=== PATIENT | male | born 1955 | race Caucasian/White ===

== ENCOUNTER 2017-07-25 22:39 | Inpatient (IN) | payer OTHER, BC ==
[~2017-07-25] VITALS: Ht 170.2 cm; Wt 84.0 kg
[~2017-07-25 22:39] MED LIST: AMLODIPINE BESYL5 MG GT; AMLODIPINE BESYL5 MG PO; ARTIFICIAL TEA3.5 G1 BOTH EYES; ATORVASTATIN CA80 MG GT; AVELOX400 MG PO; BYSTOLIC20 MG PO; CARDIZEM60 MG GT; CARVEDILOL12.5 MG GT; CLONAZEPAM1 MG PO; COLACE10 MG/ML GT; COUMADIN,JANTOVE5 MG PO; COUMADIN1 MG GT; FENOFIBRATE160 M1 PO; GLUCOPHAGE500 MG PO; HYDROCHLOROTHIA25 MG PO; IPRATR-ALBUTEROL3 ML IH; KLONOPIN1 MG PO; LISINOPRIL10 MG PO; LISINOPRIL5 MG GT; LIVALO2 MG PO; LO-DOSE ASPIRIN81 M1 PO; LOPRESSOR100 M1 PO; METANX1 TABLET PO; METFORMIN HCL500 MG PO; METOPROLOL TAR100 MG PO; NEXIUM40 MG PO; OLANZAPINE5 MG GT; OMEGA 3 1,0001 EACH PO; PERCOCET 10/1 TABLET PO; PROVENTIL HFA6.7 GM IH; TARKA 4/2401 TABLET PO; TEARS NATURALE-15 ML BOTH EYES; TRILIPIX135 MG PO; Tylenol Extra Streng PO; Tylenol GT; WARFARIN SODIUM4 MG PO; ZESTRIL,PRINIVI20 MG PO; [UNRECOGNIZED DRUG - OTHER] PO
[2017-07-25 23:15] LABS: BASOPHIL COUNT 0.1 K/uL (0-0.1); EOSINOPHIL (%) 0.1 % (0-5); HEMATOCRIT 44.7 % (38.0-50.0); IMMATURE GRANULOCYTE (%) 0.7 % (0.0-0.7); IMMATURE GRANULOCYTE COUNT 0.1 K/uL; LYMPHOCYTE COUNT 1.8 K/uL (1.0-2.8); MCH 27.7 PG (29.0-34.0); MCHC 32.4 G/DL (30.0-36.0); MCV 85.3 FL (86-99); MONOCYTE (%) 6.3 % (3-12); MONOCYTE COUNT 0.9 K/uL (0-0.8); NEUTROPHIL (%) 80.2 % (45-76); PLATELET COUNT 321 K/uL (156-360); RBC DIS.WIDTH-CV 13.7 % (11.8-14.6); RBC DIS.WIDTH-SD 42.5 % (39-53); RED BLOOD COUNT 5.24 M/uL (4.00-5.50); WHITE BLOOD COUNT 14.9 K/uL (4.1-10.2)
[2017-07-25 23:24] LABS: CHLORIDE 108 mEq/L (99-109); POTASSIUM 4.5 mEq/L (3.7-5.4); SODIUM 143 mEq/L (136-147)
[2017-07-25 23:27] LABS: GLUCOSE 211 mg/dL (70-99)
[2017-07-25 23:28] LABS: ANION GAP 17 MEQ/L (2-14)
[2017-07-25 23:29] LABS: TOTAL BILIRUBIN 0.8 mg/dL (0.0-1.0)
[2017-07-25 23:30] LABS: ALKALINE PHOSPHATASE 110 IU/L (3-129); GFR ESTIMATE (CALCULATED) 47 mL/min/
[2017-07-25 23:31] LABS: UREA NITROGEN (BUN) 21 mg/dL (9-23)
[2017-07-25 23:40] LABS: TROP-I INTERPRETATION NEGATIVE; TROPONIN-I 0.15 ng/mL (0.0-0.30)
[2017-07-26] VITALS (11 sets, daily range): BP systolic 111–164; BP diastolic 68–100
[2017-07-26 02:49] LABS: BASE EXCESS -5.4 mEq/L (-3 to +3); CARBOXY HGB 3.2 % (0-5); METHEMOGLOBIN 0.9 % (0-1.5); pH 7.42 (7.35-7.45)
[2017-07-26 02:50] LABS: BICARBONATE 17.5 mEq/L (22-26); COMMENTS - BLOOD GASES A+C+; DEVICE HHFNC; FI02 80 %; O2 FLOW 50 L/MIN; PCO2 27 mm Hg (35-45); PO2 52 mm Hg (80-100); SITE LR; TOTAL RESP RATE 20 resp/min
[2017-07-26 02:58] LABS: INTER. NORMALIZED RATIO 3.8; PROTHROMBIN TIME 43.8 SEC (10.2-12.9)
[2017-07-26 05:14] LABS: BASE EXCESS -4.4 mEq/L (-3 to +3); BICARBONATE 19.2 mEq/L (22-26); CARBOXY HGB 2.1 % (0-5); COMMENTS - BLOOD GASES A+C+; DEVICE HHFNC; FI02 80 %; METHEMOGLOBIN 0.7 % (0-1.5); O2 FLOW 50 L/MIN; PCO2 31 mm Hg (35-45); PO2 55 mm Hg (80-100); SITE LR; TOTAL RESP RATE 26 resp/min
[2017-07-26 05:57] LABS: TROP-I INTERPRETATION NEGATIVE; TROPONIN-I 0.14 ng/mL (0.0-0.30)
[2017-07-26 07:33] LABS: METH RESISTANT S AUREUS PCR NEGATIVE (NEGATIVE)
[2017-07-26 07:34] LABS: PROBE CHECK PASS; SPECIMEN PROCESSING CONTROL PASS
[2017-07-26 08:39] LABS: HEMATOCRIT 38.4 % (38.0-50.0); MCH 28.4 PG (29.0-34.0); MCHC 33.9 G/DL (30.0-36.0); MEAN PLAT.VOLUME 9.9 uM^3 (9.0-12.4); PLATELET COUNT 241 K/uL (156-360); RBC DIS.WIDTH-CV 13.8 % (11.8-14.6); RBC DIS.WIDTH-SD 42.1 % (39-53); RED BLOOD COUNT 4.57 M/uL (4.00-5.50)
[2017-07-26 08:55] LABS: INTER. NORMALIZED RATIO 4.2; PROTHROMBIN TIME 48.8 SEC (10.2-12.9)
[2017-07-26 09:04] LABS: POINT-OF-CARE METER ID UU14208751
[2017-07-26 09:30] LABS: ALKALINE PHOSPHATASE 75 IU/L (3-129); ANION GAP 12 MEQ/L (2-14); CHLORIDE 108 MEQ/L (99-109); GLUCOSE 172 mg/dL (70-99); POTASSIUM 4.1 MEQ/L (3.7-5.4); SAMPLE HEMOLYSIS CHECK 0; SAMPLE ICTERIC CHECK 0; SAMPLE LIPEMIA CHECK 0; SODIUM 142 MEQ/L (136-147); TOTAL BILIRUBIN 0.4 MG/DL (0.0-1.0); UREA NITROGEN (BUN) 21 mg/dL (9-23)
[2017-07-26 09:49] LABS: GFR ESTIMATE (CALCULATED) > 59 mL/min/
[2017-07-26 11:19] LABS: TROP-I INTERPRETATION NEGATIVE
[2017-07-26 11:50] LABS: POINT-OF-CARE METER ID UU14208751; POINT-OF-CARE USER ID 612031313
[2017-07-26 13:59] LABS: INFLUENZA A VIRAL ANTIGEN NEGATIVE; INFLUENZA B VIRAL ANTIGEN NEGATIVE
[2017-07-26] MEDS ORDERED: LIVALO2 MG PO (14:35)
[2017-07-26] MEDS ORDERED: LOPRESSOR100 M1 PO (14:36)
[2017-07-26] MEDS ORDERED: JANTOVEN4 MG PO (14:37)
[2017-07-26] MEDS ORDERED: GLUCOPHAGE500 MG PO (14:38)
[2017-07-26] MEDS ORDERED: LISINOPRIL10 MG PO (14:39)
[2017-07-26 17:16] LABS: POINT-OF-CARE METER ID UU14208751; POINT-OF-CARE USER ID 612031313
[2017-07-26 18:21] LABS: ANION GAP 14 MEQ/L (2-14); CHLORIDE 108 MEQ/L (99-109); POTASSIUM 3.9 MEQ/L (3.7-5.4); SAMPLE HEMOLYSIS CHECK 0; SAMPLE ICTERIC CHECK 0; SAMPLE LIPEMIA CHECK 0; SODIUM 142 MEQ/L (136-147)
[2017-07-26 18:26] LABS: GFR ESTIMATE (CALCULATED) > 59 mL/min/; GLUCOSE 164 mg/dL (70-99); UREA NITROGEN (BUN) 27 mg/dL (9-23)
[2017-07-26 22:16] LABS: POINT-OF-CARE METER ID UU14162636; POINT-OF-CARE USER ID LABHNS84
[2017-07-27] VITALS (10 sets, daily range): BP systolic 90–138; BP diastolic 49–93
[2017-07-27 05:43] LABS: EOSINOPHIL (%) 0 % (0-5); IMMATURE GRANULOCYTE (%) 0.7 % (0.0-0.7); IMMATURE GRANULOCYTE COUNT 0.1 K/uL; LYMPHOCYTE COUNT 0.7 K/uL (1.0-2.8); MCH 27.6 PG (29.0-34.0); MCHC 32.8 G/DL (30.0-36.0); MCV 84.1 FL (86-99); MEAN PLAT.VOLUME 10.6 uM^3 (9.0-12.4); MONOCYTE (%) 2.9 % (3-12); MONOCYTE COUNT 0.4 K/uL (0-0.8); NEUTROPHIL (%) 91.8 % (45-76); PLATELET COUNT 262 K/uL (156-360); RBC DIS.WIDTH-CV 13.8 % (11.8-14.6); RBC DIS.WIDTH-SD 42.5 % (39-53); RED BLOOD COUNT 4.64 M/uL (4.00-5.50); WHITE BLOOD COUNT 15.2 K/uL (4.1-10.2)
[2017-07-27 06:08] LABS: ANION GAP 11 MEQ/L (2-14); CHLORIDE 109 MEQ/L (99-109); GFR ESTIMATE (CALCULATED) 44 mL/min/; GLUCOSE 175 mg/dL (70-99); POTASSIUM 3.7 MEQ/L (3.7-5.4); SAMPLE HEMOLYSIS CHECK 0; SAMPLE ICTERIC CHECK 0; SAMPLE LIPEMIA CHECK 0; SODIUM 141 MEQ/L (136-147); UREA NITROGEN (BUN) 36 mg/dL (9-23)
[2017-07-27 07:18] LABS: INTERNAL CONTROL VALID? YES
[2017-07-27 12:22] LABS: POINT-OF-CARE METER ID UU14174217
[2017-07-27 12:34] LABS: INTER. NORMALIZED RATIO 3.2; PROTHROMBIN TIME 37.2 SEC (10.2-12.9)
[2017-07-27 17:19] LABS: POINT-OF-CARE METER ID UU14162636
[2017-07-27 21:11] LABS: POINT-OF-CARE METER ID UU14162636
[2017-07-28] VITALS (8 sets, daily range): BP systolic 107–152; BP diastolic 63–92
[2017-07-28 05:16] LABS: HEMATOCRIT 40.2 % (38.0-50.0); MCH 28.3 PG (29.0-34.0); MCHC 33.3 G/DL (30.0-36.0); MCV 84.8 FL (86-99); MEAN PLAT.VOLUME 10.7 uM^3 (9.0-12.4); PLATELET COUNT 291 K/uL (156-360); RBC DIS.WIDTH-CV 14.1 % (11.8-14.6); RBC DIS.WIDTH-SD 43.2 % (39-53); RED BLOOD COUNT 4.74 M/uL (4.00-5.50); WHITE BLOOD COUNT 14.5 K/uL (4.1-10.2)
[2017-07-28 05:22] LABS: INTER. NORMALIZED RATIO 2.4; PROTHROMBIN TIME 27.6 SEC (10.2-12.9)
[2017-07-28 05:43] LABS: ANION GAP 12 MEQ/L (2-14); CHLORIDE 109 MEQ/L (99-109); GFR ESTIMATE (CALCULATED) 47 mL/min/; GLUCOSE 176 mg/dL (70-99); POTASSIUM 3.9 MEQ/L (3.7-5.4); SAMPLE HEMOLYSIS CHECK 0; SAMPLE ICTERIC CHECK 0; SAMPLE LIPEMIA CHECK 0; SODIUM 143 MEQ/L (136-147); UREA NITROGEN (BUN) 51 mg/dL (9-23)
[2017-07-28 07:04] LABS: POINT-OF-CARE METER ID UU13113748
[2017-07-28 11:59] LABS: POINT-OF-CARE METER ID UU13113748
[2017-07-28 16:58] LABS: POINT-OF-CARE METER ID UU13113748
[2017-07-28 22:00] LABS: POINT-OF-CARE METER ID UU13113748
[2017-07-29] VITALS (8 sets, daily range): BP systolic 115–152; BP diastolic 60–90
[2017-07-29 04:48] LABS: INTER. NORMALIZED RATIO 2.8
[2017-07-29 04:57] LABS: CHLORIDE 109 mEq/L (99-109); POTASSIUM 3.8 mEq/L (3.7-5.4); SODIUM 143 mEq/L (136-147)
[2017-07-29 04:58] LABS: GLUCOSE 193 mg/dL (70-99)
[2017-07-29 05:00] LABS: ANION GAP 14 MEQ/L (2-14)
[2017-07-29 05:02] LABS: GFR ESTIMATE (CALCULATED) 38 mL/min/
[2017-07-29 05:03] LABS: UREA NITROGEN (BUN) 59 mg/dL (9-23)
[2017-07-29 07:44] LABS: POINT-OF-CARE METER ID UU13113748
[2017-07-29 12:21] LABS: POINT-OF-CARE METER ID UU14208751
[2017-07-29 16:17] LABS: POINT-OF-CARE METER ID UU14174216
[2017-07-29 20:55] LABS: POINT-OF-CARE METER ID UU14174216
[2017-07-30 00:40] VITALS: BP 123/67
[2017-07-30 06:18] LABS: INTER. NORMALIZED RATIO 3.2; PROTHROMBIN TIME 36.4 SEC (10.2-12.9)
[2017-07-30 08:00] VITALS: BP 166/106
[2017-07-30 13:43] VITALS: BP 133/63
[2017-07-30 16:48] LABS: POINT-OF-CARE METER ID UU13113698
[2017-07-30 17:27] VITALS: BP 122/69
[2017-07-30 20:00] VITALS: BP 118/68; BP 138/91
[2017-07-30 21:05] LABS: POINT-OF-CARE USER ID ENVMNS
[2017-07-30 23:58] VITALS: BP 127/64
[2017-07-31 04:00] VITALS: BP 124/59
[2017-07-31 05:52] LABS: HEMATOCRIT 42.1 % (38.0-50.0); MCH 27.3 PG (29.0-34.0); MCHC 32.5 G/DL (30.0-36.0); MEAN PLAT.VOLUME 9.9 uM^3 (9.0-12.4); PLATELET COUNT 292 K/uL (156-360); RBC DIS.WIDTH-CV 14.1 % (11.8-14.6); RED BLOOD COUNT 5.01 M/uL (4.00-5.50); WHITE BLOOD COUNT 13.9 K/uL (4.1-10.2)
[2017-07-31 06:24] LABS: ANION GAP 10 MEQ/L (2-14); CHLORIDE 110 MEQ/L (99-109); GFR ESTIMATE (CALCULATED) 50 mL/min/; GLUCOSE 163 mg/dL (70-99); SAMPLE HEMOLYSIS CHECK 0; SAMPLE ICTERIC CHECK 0; SAMPLE LIPEMIA CHECK 0; SODIUM 143 MEQ/L (136-147); UREA NITROGEN (BUN) 52 mg/dL (9-23)
[2017-07-31 06:26] LABS: POTASSIUM 4.7 MEQ/L (3.7-5.4)
[2017-07-31 06:27] LABS: INTER. NORMALIZED RATIO 2.8; PROTHROMBIN TIME 32.3 SEC (10.2-12.9)
[2017-07-31 08:00] VITALS: BP 139/67
[2017-07-31 11:07] LABS: POINT-OF-CARE METER ID UU13113698
[2017-07-31 12:00] VITALS: BP 136/63
[2017-07-31 16:00] VITALS: BP 132/68
[2017-07-31 16:10] LABS: POINT-OF-CARE METER ID UU13113698
[2017-07-31 20:00] VITALS: BP 156/77
[2017-07-31 23:55] VITALS: BP 141/75
[2017-08-01 03:53] VITALS: BP 128/72
[2017-08-01 04:50] LABS: INTER. NORMALIZED RATIO 2.6; PROTHROMBIN TIME 29.4 SEC (10.2-12.9)
[2017-08-01 08:00] VITALS: BP 145/78
[2017-08-01 11:21] LABS: POINT-OF-CARE METER ID UU13113698
[2017-08-01 12:00] VITALS: BP 150/86
[2017-08-01 15:46] VITALS: BP 134/80
[2017-08-01 16:44] LABS: POINT-OF-CARE METER ID UU13113698
[2017-08-01 19:54] VITALS: BP 169/88
[2017-08-01 20:44] LABS: POINT-OF-CARE METER ID UU13113698
[2017-08-02 04:05] VITALS: BP 130/61
[2017-08-02 06:01] LABS: INTER. NORMALIZED RATIO 2.7
[2017-08-02 07:50] LABS: POINT-OF-CARE METER ID UU13113781
[2017-08-02 08:11] VITALS: BP 160/90
[2017-08-02] MEDS ORDERED: DILTIAZEM 24HR180 MG PO (08:57)
[2017-08-02] MEDS ORDERED: LOPRESSOR25 MG PO (08:57)
[2017-08-02] MEDS ORDERED: PREDNISONE20 MG PO (08:57)
[2017-08-02] MEDS ORDERED: ADVAIR HFA120 INHALA IH (08:57)
[2017-08-02] MEDS ORDERED: NICOTINE PATCH1 EAC2 TD (08:57)
[2017-08-02] MEDS ORDERED: AUGMENTIN875 MG PO (08:57)
== END 2017-08-02 13:10 | disposition home or self-care (01) | DRG 871 ==
LOC: EME 22:39 → EDOF 07-26 02:23 → 4EAST 07-26 02:23 → ENRESERV 07-26 02:24 → 4WEST 07-26 05:54 → ENRESERV 07-29 14:35 → 4EAST 07-29 15:33
PROVIDERS: Emergency Medicine; Hospitalist; Internal Medicine; Internal Medicine Pulmonary Disease
DX: A41.9 Sepsis, unspecified organism (principal); R65.20 Severe sepsis without septic shock; J96.01 Acute respiratory failure with hypoxia; J44.0 Chronic obstructive pulmonary disease with (acute) lower respiratory infection; J18.9 Pneumonia, unspecified organism; J44.1 Chronic obstructive pulmonary disease with (acute) exacerbation; N17.9 Acute kidney failure, unspecified; I16.0 Hypertensive urgency; I13.0 Hypertensive heart and chronic kidney disease with heart failure and stage 1 through stage 4 chronic kidney disease, or unspecified chronic kidney disease; E11.22 Type 2 diabetes mellitus with diabetic chronic kidney disease; I50.32 Chronic diastolic (congestive) heart failure; N18.3 Chronic kidney disease, stage 3 (moderate); I48.0 Paroxysmal atrial fibrillation; E87.4 Mixed disorder of acid-base balance; E78.00 Pure hypercholesterolemia, unspecified; R74.8 Abnormal levels of other serum enzymes; I69.351 Hemiplegia and hemiparesis following cerebral infarction affecting right dominant side; K21.9 Gastro-esophageal reflux disease without esophagitis; Z79.01 Long term (current) use of anticoagulants; F17.210 Nicotine dependence, cigarettes, uncomplicated; Z82.49 Family history of ischemic heart disease and other diseases of the circulatory system; Z83.3 Family history of diabetes mellitus; Z86.711 Personal history of pulmonary embolism; Z86.718 Personal history of other venous thrombosis and embolism
CPT/HCPCS: 36600; 71010; 71250; 80048; 80048 91; 80053; 82803; 82948; 83605; 83735; 83880; 84484; 85025; 85027; 85610; 85730; 87040; 87070; 87205; 87449; 87502; 87641; 93005; 94640; 94640 76; 94644; 94799; 97530 GO; 99202; 99281; 99285; J0360; J0456; J0696; J1160; J1815; J1940; J2920; J2930; J3475; J7030; J7040; J7050; J7512

== ENCOUNTER 2017-10-07 07:23 | Inpatient (IN) | payer OTHER, BC ==
[~2017-10-07] VITALS: Ht 167.6 cm; Wt 82.5 kg
[~2017-10-07 07:23] MED LIST changes: +ADVAIR HFA120 INHALA IH; +AUGMENTIN875 MG PO; +DILTIAZEM 24HR180 MG PO; +JANTOVEN4 MG PO; +LOPRESSOR25 MG PO; +NICOTINE PATCH1 EAC2 TD; +PREDNISONE20 MG PO
[2017-10-07 08:13] LABS: BASOPHIL COUNT 0.1 K/uL (0-0.1); EOSINOPHIL (%) 4.4 % (0-5); EOSINOPHIL COUNT 0.5 K/uL (0-0.3); HEMATOCRIT 41.9 % (38.0-50.0); IMMATURE GRANULOCYTE (%) 0.4 % (0.0-0.7); IMMATURE GRANULOCYTE COUNT 0.1 K/uL; INSTRUMENT ABS NEUTROPHIL CT 8.5 K/uL; LYMPHOCYTE COUNT 2.1 K/uL (1.0-2.8); MCH 27.2 PG (29.0-34.0); MCHC 31.5 G/DL (30.0-36.0); MCV 86.2 FL (86-99); MEAN PLAT.VOLUME 9.8 uM^3 (9.0-12.4); MONOCYTE (%) 5.3 % (3-12); MONOCYTE COUNT 0.6 K/uL (0-0.8); NEUTROPHIL (%) 71.4 % (45-76); NEUTROPHIL COUNT 8.5 K/uL (1.8-6.4); PLATELET COUNT 315 K/uL (156-360); RBC DIS.WIDTH-CV 14.9 % (11.8-14.6); RBC DIS.WIDTH-SD 47.1 % (39-53); RED BLOOD COUNT 4.86 M/uL (4.00-5.50); WHITE BLOOD COUNT 11.9 K/uL (4.1-10.2)
[2017-10-07 08:25] LABS: PROTHROMBIN TIME 54.1 SEC (10.2-12.9)
[2017-10-07 08:27] LABS: CHLORIDE 111 mEq/L (99-109); POTASSIUM 4.4 mEq/L (3.7-5.4); SODIUM 144 mEq/L (136-147)
[2017-10-07 08:29] LABS: GLUCOSE 121 mg/dL (70-99)
[2017-10-07 08:29] LABS: INTER. NORMALIZED RATIO 4.8
[2017-10-07 08:30] LABS: ANION GAP 11 MEQ/L (2-14)
[2017-10-07 08:31] LABS: TOTAL BILIRUBIN 0.7 mg/dL (0.0-1.0)
[2017-10-07 08:33] LABS: ALKALINE PHOSPHATASE 115 IU/L (3-129); GFR ESTIMATE (CALCULATED) 55 mL/min/
[2017-10-07 08:34] LABS: UREA NITROGEN (BUN) 18 mg/dL (9-23)
[2017-10-07 08:41] LABS: TROP-I INTERPRETATION NEGATIVE; TROPONIN-I 0.06 ng/mL (0.0-0.30)
[2017-10-07] MEDS ORDERED: METOPROLOL TAR100 MG PO (10:10)
[2017-10-07] MEDS ORDERED: ADVAIR HFA120 INHALA IH (10:11)
[2017-10-07 11:29] LABS: ADD MIUA? YES; BILIRUBIN NEGATIVE; BLOOD SMALL; COLOR STRAW ((YELLOW)); GLUCOSE (STRIP) NEGATIVE; KETONES NEGATIVE; LEUKOCYTES NEGATIVE; NITRITE NEGATIVE; PROTEIN (STRIP) NEGATIVE; SPECIFIC GRAVITY 1.005 (1.000-1.030); UROBILINOGEN 0.2 MG/DL (0.2-1.0)
[2017-10-07 11:31] LABS: BACTERIA RARE /HPF; EPITHELIAL CELLS NONE SEEN /HPF; MUCUS TRACE /LPF; RED BLOOD CELLS 0-5 /HPF (0-5); UCUL ADDED? NO; WHITE BLOOD CELLS 0-5 /HPF (0-5)
[2017-10-07 14:00] VITALS: BP 144/83
[2017-10-07 14:58] LABS: TROP-I INTERPRETATION NEGATIVE; TROPONIN-I 0.05 ng/mL (0.0-0.30)
[2017-10-07 16:30] LABS: POINT-OF-CARE METER ID UU14314088
[2017-10-07 20:18] VITALS: BP 95/55
[2017-10-07 20:39] LABS: TROP-I INTERPRETATION NEGATIVE; TROPONIN-I 0.07 ng/mL (0.0-0.30)
[2017-10-07 20:57] LABS: POINT-OF-CARE METER ID UU14174216
[2017-10-07 23:25] VITALS: BP 99/56
[2017-10-08 04:57] VITALS: BP 97/55
[2017-10-08 05:38] LABS: INTER. NORMALIZED RATIO 3.9; PROTHROMBIN TIME 44.6 SEC (10.2-12.9)
[2017-10-08 05:39] LABS: HEMATOCRIT 35.6 % (38.0-50.0); MCH 26.8 PG (29.0-34.0); MCV 83.8 FL (86-99); MEAN PLAT.VOLUME 10.1 uM^3 (9.0-12.4); PLATELET COUNT 260 K/uL (156-360); RBC DIS.WIDTH-CV 14.8 % (11.8-14.6); RBC DIS.WIDTH-SD 45.1 % (39-53); RED BLOOD COUNT 4.25 M/uL (4.00-5.50); WHITE BLOOD COUNT 9.1 K/uL (4.1-10.2)
[2017-10-08 05:58] LABS: ALKALINE PHOSPHATASE 86 IU/L (3-129); ANION GAP 9 MEQ/L (2-14); CHLORIDE 110 MEQ/L (99-109); GFR ESTIMATE (CALCULATED) > 59 mL/min/; GLUCOSE 91 mg/dL (70-99); SAMPLE HEMOLYSIS CHECK 0; SAMPLE ICTERIC CHECK 0; SAMPLE LIPEMIA CHECK 0; SODIUM 144 MEQ/L (136-147); TOTAL BILIRUBIN 0.8 MG/DL (0.0-1.0); UREA NITROGEN (BUN) 21 mg/dL (9-23)
[2017-10-08 06:00] LABS: POTASSIUM 3.4 MEQ/L (3.7-5.4)
[2017-10-08 07:19] VITALS: BP 94/51
[2017-10-08 07:59] LABS: POINT-OF-CARE METER ID UU14174216
[2017-10-08 11:25] LABS: POINT-OF-CARE METER ID UU14174216
[2017-10-08 16:31] LABS: POINT-OF-CARE METER ID UU14174216
[2017-10-08 19:47] VITALS: BP 111/60
[2017-10-08 21:18] LABS: POINT-OF-CARE METER ID UU14174216
[2017-10-08 23:19] VITALS: BP 98/57
[2017-10-09 03:57] VITALS: BP 106/54
[2017-10-09 05:59] LABS: BASOPHIL COUNT 0.1 K/uL (0-0.1); EOSINOPHIL (%) 4.2 % (0-5); EOSINOPHIL COUNT 0.4 K/uL (0-0.3); HEMATOCRIT 34.4 % (38.0-50.0); IMMATURE GRANULOCYTE (%) 0.2 % (0.0-0.7); INSTRUMENT ABS NEUTROPHIL CT 6.6 K/uL; LYMPHOCYTE COUNT 1.7 K/uL (1.0-2.8); MCH 26.8 PG (29.0-34.0); MCV 83.9 FL (86-99); MEAN PLAT.VOLUME 10.1 uM^3 (9.0-12.4); MONOCYTE (%) 8.1 % (3-12); MONOCYTE COUNT 0.8 K/uL (0-0.8); NEUTROPHIL (%) 68.7 % (45-76); NEUTROPHIL COUNT 6.6 K/uL (1.8-6.4); PLATELET COUNT 247 K/uL (156-360); RBC DIS.WIDTH-CV 14.4 % (11.8-14.6); RBC DIS.WIDTH-SD 43.9 % (39-53); WHITE BLOOD COUNT 9.6 K/uL (4.1-10.2)
[2017-10-09 06:14] LABS: INTER. NORMALIZED RATIO 2.8
[2017-10-09 06:27] LABS: PROTHROMBIN TIME 32.3 SEC (10.2-12.9)
[2017-10-09 06:31] LABS: ALKALINE PHOSPHATASE 75 IU/L (3-129); ANION GAP 9 MEQ/L (2-14); CHLORIDE 108 MEQ/L (99-109); GFR ESTIMATE (CALCULATED) 44 mL/min/; GLUCOSE 108 mg/dL (70-99); POTASSIUM 3.2 MEQ/L (3.7-5.4); SAMPLE HEMOLYSIS CHECK 0; SAMPLE ICTERIC CHECK 0; SAMPLE LIPEMIA CHECK 0; SODIUM 142 MEQ/L (136-147); TOTAL BILIRUBIN 0.6 MG/DL (0.0-1.0); UREA NITROGEN (BUN) 26 mg/dL (9-23)
[2017-10-09 07:51] VITALS: BP 103/58
[2017-10-09 08:33] LABS: POINT-OF-CARE METER ID UU14314088
[2017-10-09 11:12] LABS: POINT-OF-CARE METER ID UU14174216
[2017-10-09 11:50] VITALS: BP 98/60
[2017-10-09 16:26] LABS: POINT-OF-CARE METER ID UU14174216
[2017-10-09 19:11] VITALS: BP 127/66
[2017-10-09 21:32] LABS: POINT-OF-CARE METER ID UU14174216
[2017-10-09 23:32] VITALS: BP 111/54
[2017-10-10 03:16] VITALS: BP 91/50
[2017-10-10 05:59] LABS: EOSINOPHIL (%) 0 % (0-5); HEMATOCRIT 35.7 % (38.0-50.0); IMMATURE GRANULOCYTE (%) 0.6 % (0.0-0.7); IMMATURE GRANULOCYTE COUNT 0.1 K/uL; LYMPHOCYTE COUNT 0.6 K/uL (1.0-2.8); MCHC 31.7 G/DL (30.0-36.0); MCV 85.2 FL (86-99); MONOCYTE (%) 1.4 % (3-12); MONOCYTE COUNT 0.1 K/uL (0-0.8); NEUTROPHIL (%) 91.9 % (45-76); PLATELET COUNT 278 K/uL (156-360); RBC DIS.WIDTH-CV 14.6 % (11.8-14.6); RBC DIS.WIDTH-SD 44.7 % (39-53); RED BLOOD COUNT 4.19 M/uL (4.00-5.50); WHITE BLOOD COUNT 9.8 K/uL (4.1-10.2)
[2017-10-10 06:26] LABS: INTER. NORMALIZED RATIO 1.7
[2017-10-10 06:46] LABS: ALKALINE PHOSPHATASE 77 IU/L (3-129); ANION GAP 11 MEQ/L (2-14); CHLORIDE 106 MEQ/L (99-109); GFR ESTIMATE (CALCULATED) 38 mL/min/; SAMPLE HEMOLYSIS CHECK 0; SAMPLE ICTERIC CHECK 0; SAMPLE LIPEMIA CHECK 0; SODIUM 141 MEQ/L (136-147); UREA NITROGEN (BUN) 39 mg/dL (9-23)
[2017-10-10 06:49] VITALS: BP 90/52
[2017-10-10 06:49] LABS: GLUCOSE 211 mg/dL (70-99); POTASSIUM 4.4 MEQ/L (3.7-5.4); TOTAL BILIRUBIN 0.4 MG/DL (0.0-1.0)
[2017-10-10 07:39] LABS: POINT-OF-CARE METER ID UU13113781
[2017-10-10 10:50] VITALS: BP 118/61
[2017-10-10 11:42] LABS: POINT-OF-CARE METER ID UU13113781
[2017-10-10 14:43] VITALS: BP 104/61
[2017-10-10 15:24] LABS: BASE EXCESS -1.1 mEq/L (-3 to +3); BICARBONATE 22.2 mEq/L (22-26); CARBOXY HGB 2.2 % (0-5); COMMENTS - BLOOD GASES A+C+; DEVICE HIGH FLOW NC; METHEMOGLOBIN 1.8 % (0-1.5); O2 FLOW 7 L/MIN; PCO2 32 mm Hg (35-45); PO2 54 mm Hg (80-100); SITE RR; pH 7.45 (7.35-7.45)
[2017-10-10 16:21] LABS: POINT-OF-CARE METER ID UU13113781
[2017-10-10 16:38] VITALS: BP 105/54
[2017-10-10 18:55] VITALS: BP 103/48
[2017-10-10 21:10] LABS: POINT-OF-CARE METER ID UU14174216
[2017-10-11] VITALS (7 sets, daily range): BP systolic 98–118; BP diastolic 51–70
[2017-10-11 05:48] LABS: EOSINOPHIL (%) 0 % (0-5); HEMATOCRIT 34.5 % (38.0-50.0); IMMATURE GRANULOCYTE (%) 0.7 % (0.0-0.7); IMMATURE GRANULOCYTE COUNT 0.1 K/uL; INSTRUMENT ABS NEUTROPHIL CT 16.4 K/uL; LYMPHOCYTE COUNT 0.6 K/uL (1.0-2.8); MCH 27.4 PG (29.0-34.0); MCHC 31.9 G/DL (30.0-36.0); MCV 85.8 FL (86-99); MONOCYTE (%) 2.3 % (3-12); MONOCYTE COUNT 0.4 K/uL (0-0.8); NEUTROPHIL (%) 93.5 % (45-76); NEUTROPHIL COUNT 16.4 K/uL (1.8-6.4); PLATELET COUNT 296 K/uL (156-360); RBC DIS.WIDTH-CV 15.2 % (11.8-14.6); RBC DIS.WIDTH-SD 47.5 % (39-53); RED BLOOD COUNT 4.02 M/uL (4.00-5.50); WHITE BLOOD COUNT 17.5 K/uL (4.1-10.2)
[2017-10-11 05:59] LABS: INTER. NORMALIZED RATIO 1.8; PROTHROMBIN TIME 20.1 SEC (10.2-12.9)
[2017-10-11 06:25] LABS: ALKALINE PHOSPHATASE 67 IU/L (3-129); ANION GAP 9 MEQ/L (2-14); CHLORIDE 106 MEQ/L (99-109); GFR ESTIMATE (CALCULATED) 36 mL/min/; GLUCOSE 201 mg/dL (70-99); POTASSIUM 4.8 MEQ/L (3.7-5.4); SAMPLE HEMOLYSIS CHECK 0; SAMPLE ICTERIC CHECK 0; SAMPLE LIPEMIA CHECK 0; SODIUM 137 MEQ/L (136-147); TOTAL BILIRUBIN 0.2 MG/DL (0.0-1.0); UREA NITROGEN (BUN) 59 mg/dL (9-23)
[2017-10-11 07:39] LABS: POINT-OF-CARE METER ID UU13113781; POINT-OF-CARE USER ID NUTSLF44
[2017-10-11 12:11] LABS: POINT-OF-CARE METER ID UU13113781; POINT-OF-CARE USER ID NUTSLF44
[2017-10-11 17:04] LABS: POINT-OF-CARE METER ID UU13113781; POINT-OF-CARE USER ID NUTSLF44
[2017-10-11 21:02] LABS: POINT-OF-CARE METER ID UU13113781
[2017-10-12 04:29] VITALS: BP 117/68
[2017-10-12 05:24] LABS: EOSINOPHIL (%) 0 % (0-5); HEMATOCRIT 34.8 % (38.0-50.0); IMMATURE GRANULOCYTE (%) 0.5 % (0.0-0.7); IMMATURE GRANULOCYTE COUNT 0.1 K/uL; INSTRUMENT ABS NEUTROPHIL CT 13.4 K/uL; LYMPHOCYTE COUNT 0.6 K/uL (1.0-2.8); MCHC 31.9 G/DL (30.0-36.0); MCV 84.7 FL (86-99); MEAN PLAT.VOLUME 10.4 uM^3 (9.0-12.4); MONOCYTE (%) 2.5 % (3-12); MONOCYTE COUNT 0.4 K/uL (0-0.8); NEUTROPHIL (%) 92.5 % (45-76); NEUTROPHIL COUNT 13.4 K/uL (1.8-6.4); PLATELET COUNT 289 K/uL (156-360); RBC DIS.WIDTH-CV 15.2 % (11.8-14.6); RBC DIS.WIDTH-SD 46.9 % (39-53); RED BLOOD COUNT 4.11 M/uL (4.00-5.50); WHITE BLOOD COUNT 14.5 K/uL (4.1-10.2)
[2017-10-12 05:27] LABS: INTER. NORMALIZED RATIO 1.7; PROTHROMBIN TIME 19.4 SEC (10.2-12.9)
[2017-10-12 05:48] LABS: ANION GAP 9 MEQ/L (2-14); CHLORIDE 104 MEQ/L (99-109); GFR ESTIMATE (CALCULATED) 38 mL/min/; GLUCOSE 190 mg/dL (70-99); POTASSIUM 4.3 MEQ/L (3.7-5.4); SAMPLE HEMOLYSIS CHECK 0; SAMPLE ICTERIC CHECK 0; SAMPLE LIPEMIA CHECK 0; SODIUM 135 MEQ/L (136-147); UREA NITROGEN (BUN) 64 mg/dL (9-23)
[2017-10-12 07:25] VITALS: BP 128/71
[2017-10-12 07:27] VITALS: BP 100/57
[2017-10-12 07:50] LABS: POINT-OF-CARE METER ID UU13113698; POINT-OF-CARE USER ID ENVKC36
[2017-10-12 11:59] LABS: POINT-OF-CARE METER ID UU14174216; POINT-OF-CARE USER ID ENVKC36
[2017-10-12 12:00] VITALS: BP 123/72
[2017-10-12 17:06] LABS: POINT-OF-CARE METER ID UU14174216; POINT-OF-CARE USER ID ENVKC36
[2017-10-12 17:20] VITALS: BP 125/62
[2017-10-12 19:15] VITALS: BP 130/70
[2017-10-12 21:15] LABS: POINT-OF-CARE METER ID UU13113698
[2017-10-13 00:01] VITALS: BP 125/58
[2017-10-13 04:01] VITALS: BP 91/55
[2017-10-13 05:33] LABS: EOSINOPHIL (%) 0 % (0-5); HEMATOCRIT 35.3 % (38.0-50.0); IMMATURE GRANULOCYTE (%) 0.8 % (0.0-0.7); IMMATURE GRANULOCYTE COUNT 0.1 K/uL; INSTRUMENT ABS NEUTROPHIL CT 9.4 K/uL; LYMPHOCYTE COUNT 0.6 K/uL (1.0-2.8); MCH 26.9 PG (29.0-34.0); MCHC 31.7 G/DL (30.0-36.0); MCV 84.7 FL (86-99); MONOCYTE (%) 4.6 % (3-12); MONOCYTE COUNT 0.5 K/uL (0-0.8); NEUTROPHIL (%) 89.1 % (45-76); NEUTROPHIL COUNT 9.4 K/uL (1.8-6.4); PLATELET COUNT 286 K/uL (156-360); RBC DIS.WIDTH-CV 15.3 % (11.8-14.6); RBC DIS.WIDTH-SD 47.7 % (39-53); RED BLOOD COUNT 4.17 M/uL (4.00-5.50); WHITE BLOOD COUNT 10.6 K/uL (4.1-10.2)
[2017-10-13 05:39] LABS: INTER. NORMALIZED RATIO 1.7
[2017-10-13 06:02] LABS: ALKALINE PHOSPHATASE 62 IU/L (3-129); ANION GAP 11 MEQ/L (2-14); CHLORIDE 106 MEQ/L (99-109); GFR ESTIMATE (CALCULATED) 44 mL/min/; GLUCOSE 177 mg/dL (70-99); SAMPLE HEMOLYSIS CHECK 0; SAMPLE ICTERIC CHECK 0; SAMPLE LIPEMIA CHECK 0; SODIUM 139 MEQ/L (136-147); TOTAL BILIRUBIN 0.2 MG/DL (0.0-1.0); UREA NITROGEN (BUN) 63 mg/dL (9-23)
[2017-10-13 08:04] LABS: POINT-OF-CARE METER ID UU13113698; POINT-OF-CARE USER ID ENVKC36
[2017-10-13 09:18] VITALS: BP 107/52
[2017-10-13 11:42] VITALS: BP 128/58
[2017-10-13 11:56] LABS: POINT-OF-CARE METER ID UU13113698; POINT-OF-CARE USER ID ENVKC36
[2017-10-13 16:58] LABS: POINT-OF-CARE METER ID UU14314088; POINT-OF-CARE USER ID ENVKC36
[2017-10-13 17:02] VITALS: BP 149/66
[2017-10-13 19:39] VITALS: BP 142/65
[2017-10-13 21:06] LABS: POINT-OF-CARE METER ID UU14314088
[2017-10-14 00:58] VITALS: BP 120/72
[2017-10-14 04:49] LABS: EOSINOPHIL (%) 0 % (0-5); HEMATOCRIT 36.7 % (38.0-50.0); IMMATURE GRANULOCYTE (%) 1.9 % (0.0-0.7); IMMATURE GRANULOCYTE COUNT 0.2 K/uL; INSTRUMENT ABS NEUTROPHIL CT 7.4 K/uL; LYMPHOCYTE COUNT 0.7 K/uL (1.0-2.8); MCHC 31.9 G/DL (30.0-36.0); MCV 84.6 FL (86-99); MEAN PLAT.VOLUME 10.2 uM^3 (9.0-12.4); MONOCYTE (%) 7.3 % (3-12); MONOCYTE COUNT 0.7 K/uL (0-0.8); NEUTROPHIL (%) 82.4 % (45-76); NEUTROPHIL COUNT 7.4 K/uL (1.8-6.4); PLATELET COUNT 276 K/uL (156-360); RBC DIS.WIDTH-CV 15.2 % (11.8-14.6); RBC DIS.WIDTH-SD 46.5 % (39-53); RED BLOOD COUNT 4.34 M/uL (4.00-5.50)
[2017-10-14 04:56] LABS: INTER. NORMALIZED RATIO 2.1; PROTHROMBIN TIME 23.6 SEC (10.2-12.9)
[2017-10-14 05:23] LABS: ANION GAP 10 MEQ/L (2-14); CHLORIDE 105 MEQ/L (99-109); POTASSIUM 4.8 MEQ/L (3.7-5.4); SAMPLE HEMOLYSIS CHECK 0; SAMPLE ICTERIC CHECK 0; SAMPLE LIPEMIA CHECK 0; SODIUM 136 MEQ/L (136-147)
[2017-10-14 05:29] LABS: GFR ESTIMATE (CALCULATED) 44 mL/min/; GLUCOSE 174 mg/dL (70-99); UREA NITROGEN (BUN) 51 mg/dL (9-23)
[2017-10-14 05:36] VITALS: BP 125/75
[2017-10-14 07:50] LABS: POINT-OF-CARE METER ID UU13113698
[2017-10-14 08:44] VITALS: BP 118/69
[2017-10-14 11:36] LABS: POINT-OF-CARE METER ID UU14314088
[2017-10-14 13:00] VITALS: BP 151/80
[2017-10-14 16:41] LABS: POINT-OF-CARE METER ID UU14314088
[2017-10-14 16:54] VITALS: BP 109/66
[2017-10-14 19:00] VITALS: BP 124/62
[2017-10-14 21:07] LABS: POINT-OF-CARE METER ID UU13113698
[2017-10-15 04:30] VITALS: BP 115/51
[2017-10-15 05:44] LABS: INTER. NORMALIZED RATIO 2.7; PROTHROMBIN TIME 30.6 SEC (10.2-12.9)
[2017-10-15 08:07] LABS: POINT-OF-CARE METER ID UU13113781
[2017-10-15 08:50] VITALS: BP 140/68
[2017-10-15 11:33] LABS: POINT-OF-CARE METER ID UU14174216
[2017-10-15 12:27] VITALS: BP 129/86
[2017-10-15] MEDS ORDERED: CEFDINIR300 MG PO (13:03)
[2017-10-15] MEDS ORDERED: CARDIZEM CD,CA180 MG PO (13:06)
[2017-10-15] MEDS ORDERED: CARDIZEM CD,CA240 MG PO (13:06)
[2017-10-15] MEDS ORDERED: SPIRIVA RESPIMAT4 GM IH (13:07)
[2017-10-15] MEDS ORDERED: VENTOLIN HFA18 GM IH (13:08)
[2017-10-15] MEDS ORDERED: PREDNISONE5 MG PO (13:10)
== END 2017-10-15 15:25 | disposition home health service (06) | DRG 291 ==
LOC: EME 07:23 → EDOF 09:57 → 4EAST 09:57 → ENRESERV 10:05 → EDOF 12:50 → 4EAST 13:30
PROVIDERS: Emergency Medicine; Hospitalist; Internal Medicine
DX: I13.0 Hypertensive heart and chronic kidney disease with heart failure and stage 1 through stage 4 chronic kidney disease, or unspecified chronic kidney disease (principal); J96.01 Acute respiratory failure with hypoxia; J44.0 Chronic obstructive pulmonary disease with (acute) lower respiratory infection; J44.1 Chronic obstructive pulmonary disease with (acute) exacerbation; I50.33 Acute on chronic diastolic (congestive) heart failure; J15.9 Unspecified bacterial pneumonia; Z86.711 Personal history of pulmonary embolism; Z86.718 Personal history of other venous thrombosis and embolism; Z79.01 Long term (current) use of anticoagulants; N18.3 Chronic kidney disease, stage 3 (moderate); I48.91 Unspecified atrial fibrillation; E11.22 Type 2 diabetes mellitus with diabetic chronic kidney disease; E78.5 Hyperlipidemia, unspecified; E87.2 Acidosis; F17.200 Nicotine dependence, unspecified, uncomplicated; I25.10 Atherosclerotic heart disease of native coronary artery without angina pectoris; I25.2 Old myocardial infarction; J98.11 Atelectasis; K21.9 Gastro-esophageal reflux disease without esophagitis; N17.9 Acute kidney failure, unspecified; T50.1X5A Adverse effect of loop [high-ceiling] diuretics, initial encounter; Z86.73 Personal history of transient ischemic attack (TIA), and cerebral infarction without residual deficits; D68.32 Hemorrhagic disorder due to extrinsic circulating anticoagulants; T45.515A Adverse effect of anticoagulants, initial encounter; I08.3 Combined rheumatic disorders of mitral, aortic and tricuspid valves
CPT/HCPCS: 36600; 71010; 71250; 76770; 80048; 80053; 81003; 82803; 82948; 83605; 83880; 84443; 84484; 85025; 85027; 85610; 87040; 93005; 93306; 94010; 94640; 94640 76; 94760; 94799; 99202; 99281; 99285; J0696; J1160; J1815; J1940; J2405; J2920; J2930; J7050; J7512